=== PATIENT | male | born 1985 | race Two or more races ===

== ENCOUNTER 2018-10-19 16:36 | Emergency (ER) | payer OTHER ==
[2018-10-19] MEDS ORDERED: IBUPROFEN 400 MG TABLET PO ONE (17:00)
[2018-10-19] MEDS ORDERED: IBUPROFEN 400 MG TABLET ONE (17:29)
== END 2018-10-19 20:44 | disposition home or self-care (01) ==
LOC: ER 16:36
DX: S20.212A Contusion of left front wall of thorax, initial encounter (principal); W50.1XXA Accidental kick by another person, initial encounter; Y93.89 Activity, other specified; Y92.89 Other specified places as the place of occurrence of the external cause; Y99.8 Other external cause status
CPT/HCPCS: 71100-TC

== ENCOUNTER 2022-05-08 01:40 | Emergency (ER) | payer OTHER ==
[~2022-05-08] VITALS: Ht 172.7 cm; Wt 88.5 kg
[2022-05-08] MEDS ORDERED: MORPHINE SULFATE INJ 2 MG/ML DISP.SYRIN ONE (02:15)
[2022-05-08] MEDS ORDERED: ONDANSETRON HCL/PF 4 MG/2 ML VIAL ONE (02:15)
--- NOTE | 2022-05-08 02:20 | NUR ---
BIBRA 881 C/O LLQ ABD 05/12 PAIN + N/V SINCE 0600. DRANK 4 BEER CANS ON 05/06 WHICH HE BELIEVES MAY HAVE EXACERBATED HIS DIVERTICULTIS. PT AWAKE AND ALERT X4 BREATHING UNLABORED. CHANGED INTO GOWN AND PLACED ON MONITOR AND V/S WNL.
[2022-05-08] MEDS: MORPHINE SULFATE INJ 2 MG/ML DISP.SYRIN IV ONE (02:22)
[2022-05-08] MEDS: ONDANSETRON HCL/PF 4 MG/2 ML VIAL IVP ONE (02:22)
[2022-05-08] MEDS: IV NS 0.9% 500 ML BAG IV ONE (02:22)
--- NOTE | 2022-05-08 02:25 | NUR ---
20g iv at lac. blood drawn and sent to lab
--- NOTE | 2022-05-08 02:25 | NUR ---
PT UNABLE TO PROVIDE URINE AT THIS TIME
--- NOTE | 2022-05-08 02:49 | NUR ---
PT TAKEN TO CT VIA [facility]
[2022-05-08 02:57] LABS: BASOPHILS # (AUTO) 0.1 K/uL (0.0-0.2); BASOPHILS % (AUTO) 0.4 % (0.0-2.0); HEMATOCRIT 43 % (39-51); HEMOGLOBIN 14.7 g/dL (13.5-17.5); LYMPHOCYTES # (AUTO) 1.4 K/uL (0.8-4.8); LYMPHOCYTES % (AUTO) 8.2 % (20.0-44.0); MEAN CORPUSCULAR HGB CONC 34 g/dl (31.0-36.0); MEAN CORPUSCULAR VOLUME 86 fL (80-96); MONOCYTES % (AUTO) 6.1 % (2.0-12.0); NEUTROPHILS # (AUTO) 14.3 K/uL (1.8-8.9); NEUTROPHILS % (AUTO) 85.3 % (43.0-81.0); PLATELET COUNT (AUTO) 261 K/uL (150-450); RED BLOOD CELL COUNT(AUTO) 4.98 MIL/uL (4.5-6.0); WHITE BLOOD COUNT (AUTO) 16.7 K/uL (4.3-11.0)
[2022-05-08 03:09] LABS: CALCIUM, SERUM 9.2 mg/dL (8.5-10.1)
--- NOTE | 2022-05-08 03:17 | NUR ---
PT BECAME AGGITATED WITH STAFF, PULLED OUT IV, AND ELOPED FROM EMERGENCY DEPARTMENT. MADE AWARE.
[2022-05-08 03:19] VITALS: BP 112/68
[2022-05-08 03:19] LABS: ALBUMIN 4.2 g/dL (3.4-5.0); BILIRUBIN,DIRECT 0.2 mg/dL (0.0-0.2); TOTAL PROTEIN, SERUM 7.4 g/dL (6.4-8.2)
== END 2022-05-08 03:19 | disposition left against medical advice (07) ==
LOC: ER 01:48
DX: Z76.5 Malingerer [conscious simulation] (principal); R10.32 Left lower quadrant pain; R11.2 Nausea with vomiting, unspecified
CPT/HCPCS: 99284; 74176; 96374; 96361; 96375; 85025; 80048; 83690; 80076; 85730; J2405; J7040; J2270; 36415

== ENCOUNTER 2023-10-04 08:33 | Emergency (ER) | payer OTHER ==
[~2023-10-04] VITALS: Ht 170.2 cm; Wt 90.7 kg
[2023-10-04] MEDS ORDERED: ONDANSETRON HCL/PF 4 MG/2 ML VIAL ONE (08:57)
[2023-10-04] MEDS ORDERED: ACETAMINOPHEN ES 500 MG TABLET ONE ×2 (08:57→10:16)
[2023-10-04] MEDS: IV NS 0.9% 1,000 ML BAG IV ONE (09:06)
[2023-10-04] MEDS: ONDANSETRON HCL/PF 4 MG/2 ML VIAL IVP ONE (09:06)
[2023-10-04] MEDS: ACETAMINOPHEN ES 500 MG TABLET PO ONE ×2 (09:07→10:18)
[2023-10-04 09:09] LABS: BASOPHILS % (AUTO) 0.4 % (0.0-2.0); EOSINOPHILS # (AUTO) 0.1 K/uL (0.0-0.7); EOSINOPHILS % (AUTO) 1.1 % (0.0-6.0); HEMATOCRIT 43 % (39-51); HEMOGLOBIN 14.6 g/dL (13.5-17.5); LYMPHOCYTES # (AUTO) 0.9 K/uL (0.8-4.8); LYMPHOCYTES % (AUTO) 11.5 % (20.0-44.0); MEAN CORPUSCULAR HEMOGLOBIN 31 PG (26.0-33.0); MEAN CORPUSCULAR HGB CONC 34 g/dl (31.0-36.0); MEAN CORPUSCULAR VOLUME 91 fL (80-96); MONOCYTES # (AUTO) 0.3 K/uL (0.1-1.30); MONOCYTES % (AUTO) 3.9 % (2.0-12.0); NEUTROPHILS # (AUTO) 6.6 K/uL (1.8-8.9); NEUTROPHILS % (AUTO) 83.1 % (43.0-81.0); PLATELET COUNT (AUTO) 218 K/uL (150-450); RED BLOOD CELL COUNT(AUTO) 4.78 MIL/uL (4.5-6.0); RED CELL DISTRIBUTION WIDTH 13.2 % (11.5-15.0)
[2023-10-04 09:25] LABS: ALBUMIN 3.6 g/dL (3.4-5.0); BILIRUBIN,DIRECT 0.1 mg/dL (0.0-0.2); BILIRUBIN,TOTAL 0.5 mg/dL (0.2-1.0); CALCIUM, SERUM 8.7 mg/dL (8.5-10.1); CREATININE 0.9 mg/dL (0.6-1.3); POTASSIUM 4.1 mmol/L (3.5-5.1); TOTAL PROTEIN, SERUM 6.4 g/dL (6.4-8.2)
[2023-10-04] MEDS ORDERED: ONDA4TAB5 PO (10:02)
[2023-10-04 10:20] VITALS: BP 120/63; TEMP 98.3; O2SAT 98
== END 2023-10-04 10:45 | disposition home or self-care (01) ==
LOC: ER 08:36
DX: R10.84 Generalized abdominal pain (principal); R11.0 Nausea
CPT/HCPCS: 99284; 96374; 96361; 74021; 85025; 80048; 83690; 80076; 36415; J2405; J7030; A4223